=== PATIENT | female | born 1980 | race Caucasian/White ===

== ENCOUNTER 2017-12-22 12:19 | Emergency (ER) | payer SELFPAY ==
[2017-12-22] MEDS ORDERED: DIPH/PERTUSS(ACELL)/TETANUS VAC/PF 0.5 ML SYR (>=10YO) IM ONE (13:00)
[2017-12-22] MEDS ORDERED: LIDOCAINE 1% INJ-PF (10 MG/ML) 30 ML SDV INJ ONE (13:01)
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
== END 2017-12-22 14:47 | disposition home or self-care (01) ==
LOC: ER 12:19
DX: S01.01XA Laceration without foreign body of scalp, initial encounter (principal); W27.8XXA Contact with other nonpowered hand tool, initial encounter; Y93.89 Activity, other specified; F10.120 Alcohol abuse with intoxication, uncomplicated; F17.200 Nicotine dependence, unspecified, uncomplicated; Z88.0 Allergy status to penicillin; Z88.1 Allergy status to other antibiotic agents; Z88.8 Allergy status to other drugs, medicaments and biological substances
CPT/HCPCS: 90471; 90715; 99283

== ENCOUNTER 2019-01-03 17:37 | Emergency (ER) | payer SELFPAY ==
[2019-01-03] MEDS ORDERED: LORAZEPAM INJ 2 MG/1 ML VIAL IV ONE (19:51)
--- NOTE | 2019-01-03 20:03 | ER Document Report ---
ED Dizziness/Weakness - General Chief Complaint: Dizziness Stated Complaint: SICK Time Seen by Provider: 01/03/19 18:51 Primary Care Provider: [facility] [Provider Group] - Follow up tomorrow STARR CARVAJAL MD [ACTIVE STAFF] - Follow up as needed Mode of Arrival: Ambulatory Information source: Patient Notes: Patient presents complaining of dizziness for the past 7 days in which she feels like she is off balance. Patient states that she got bit by a take to the abdomen 6 weeks ago and she is concerned she may have Lyme's disease and would like to be tested. Patient does complain of some nausea. Patient also reports insomnia for the past 5 days that she has been attempting to manage by taking crack cocaine, marijuana as well as methamphetamine for the past 3 days. Patient denies any headache pain. Patient denies any fever. TRAVEL OUTSIDE OF THE [place] IN LAST 30 DAYS: No - HPI Patient complains to provider of: Dizziness, Other - Insomnia Onset: Other - 5 days Onset/Duration: Persistent Quality of pain: No pain Pain Level: Denies Associated symptoms: Dizzy, Nausea. denies: Chest pain, Confused, Ear pain, Fainted, Headache, Lightheaded, Short of breath, Vomiting Baseline gait: Walks w/o assistance - Related Data Allergies/Adverse Reactions: ampicillin [Ampicillin] Allergy (Verified 01/03/19 17:53) doxycycline [Doxycycline] Allergy (Verified 01/03/19 17:53) promethazine [From Phenergan] Allergy (Verified 01/03/19 17:53) promethazine HCl [From Phenergan] Allergy (Verified 01/03/19 17:53) Past Medical History - General Information source: Patient - Social History Smoking Status: Current Every Day Smoker Frequency of alcohol use: Occasional Drug Abuse: Cocaine, Marijuana, Methamphetamine Occupation: Foodservice Family History: None, Reviewed & Not Pertinent Patient has suicidal ideation: No Patient has homicidal ideation: No Renal/ Medical History: Denies: Hx Peritoneal Dialysis Skin Medical History: Denies Hx MRSA, Reports Hx Psoriasis Past Surgical History: Reports: Hx Section, Hx Orthopedic Surgery Review of Systems - Review of Systems Constitutional: No symptoms reported. denies: Chills, Fever, Recent illness EENT: No symptoms reported. denies: Nose congestion, Nose discharge Cardiovascular: Dizziness. denies: Chest pain, Palpitations, Syncope Respiratory: No symptoms reported. denies: Cough, Short of breath Gastrointestinal: Nausea. denies: Abdominal pain, Diarrhea, Vomiting Genitourinary: No symptoms reported Female Genitourinary: No symptoms reported. denies: Musculoskeletal: No symptoms reported. denies: Back pain, Joint pain, Muscle pain, Neck pain Skin: Other - Insect bite to abdomen from take. denies: Rash Hematologic/Lymphatic: No symptoms reported Neurological/Psychological: No symptoms reported. denies: Weakness, Headaches Physical Exam - Vital signs Vitals: Temp Pulse Resp BP Pulse Ox 97.7 F 68 16 123/71 100 01/03/19 18:24 01/03/19 18:24 01/03/19 18:24 01/03/19 18:24 01/03/19 18:24 - General General appearance: Alert, Anxious In distress: None Notes: Restless in room, patient continually moving about - HEENT Head: Normocephalic, Atraumatic Eyes: Normal Eyelashes: Normal Pupils: PERRL Nasal: Normal Mouth/Lips: Other - Patient continually licking lips and rolling lips Mucous membranes: Dry Pharynx: Normal Neck: Normal, Supple. No: Lymphadenopathy - Respiratory Respiratory status: No respiratory distress Chest status: Nontender Breath sounds: Normal. No: Rales, Rhonchi, Stridor, Wheezing Chest palpation: Normal - Cardiovascular Rhythm: Regular. No: Tachycardia Heart sounds: S1 appreciated, S2 appreciated - Back Back: Normal, Nontender - Extremities General upper extremity: Normal inspection, Normal strength General lower extremity: Normal inspection, Normal strength - Neurological Neuro grossly intact: Yes Cognition: Normal Trang Coma Scale Eye Opening: Spontaneous Joshua Coma Scale Verbal: Oriented Trang Coma Scale Motor: Obeys Commands Trang Coma Scale Total: 15 - Psychological Associated symptoms: Restlessness - Skin Skin Temperature: Warm Skin Moisture: Dry Skin Color: Normal Skin irregularity: other - Patient with scattered excoriated lesions to trunk and extremities Course - Re-evaluation Re-evalutation: 01/03/19 21:13 Patient is continually restless walking in and out of the emergency department to her vehicle. Patient is continually requesting prescription for Valium to manage her symptoms. When provider pulled patient aside to discuss concern about substance abuse not in the presence of her children, patient became irate insisting that her insomnia was not at all related to taking methamphetamine or crack cocaine. Patient states that her insomnia causes her to get dizzy and makes her want to take medicine to treat her symptoms. Patient states that she does not get medicine to help her sleep and she is going to take something [id number] to help her sleep. Patient's ex- is at bedside who has full custody of the children states that he does not have concerns about patient's safety at this time. Patient denies any suicidal or homicidal ideation. Patient is continually requesting a prescription for Valium to help with sleep. Patient was offered the opportunity to stay and speak with mental health staff regarding her insomnia as well as substance abuse. Patient declined staying for any mental health evaluation. Consulted with Dr. Romulo Hilario regarding patient presentation. Agrees with discharge plan of care at this time. 01/04/19 02:01 - Vital Signs Vital signs: Temp Pulse Resp BP Pulse Ox 97.9 F 96 16 107/69 100 01/03/19 21:39 01/03/19 21:39 01/03/19 21:39 01/03/19 21:39 01/03/19 21:39 - Laboratory Result Diagrams: 01/03/19 20:05 01/03/19 20:05 Laboratory results interpreted by me: 01/03/19 01/03/19 20:05 20:05 RDW 14.4 H Eosinophils % 6.4 H Creatine Kinase 222 H Labs- Entire Visit 01/03/19 01/03/19 01/03/19 20:05 20:05 20:05 WBC 8.3 RBC 4.49 Hgb 12.7 Hct 38.0 MCV 85 MCH 28.4 MCHC 33.5 RDW 14.4 H Plt Count 328 Seg Neutrophils % 43.1 Lymphocytes % 37.7 Monocytes % 11.6 Eosinophils % 6.4 H Basophils % 1.2 Absolute Neutrophils 3.6 Absolute Lymphocytes 3.1 Absolute Monocytes 1.0 Absolute Eosinophils 0.5 Absolute Basophils 0.1 Sodium 140.2 Potassium 3.9 Chloride 107 Carbon Dioxide 27 Anion Gap 6 BUN 14 Creatinine 0.90 Est GFR ( Amer) > 60 Est GFR (Non-Af Amer) > 60 Glucose 77 Calcium 10.0 Total Bilirubin 0.6 Direct Bilirubin 0.2 Neonat Total Bilirubin Not Reportable Neonat Direct Bilirubin Not Reportable Neonat Indirect Bili Not Reportable AST 24 ALT 16 Alkaline Phosphatase 58 Creatine Kinase 222 H Total Protein 7.4 Albumin 4.5 Serum HCG, Qual NEGATIVE Discharge - Discharge Clinical Impression: Methamphetamine abuse, Cocaine abuse, concern about lyme disease Tick bite Qualifiers: Encounter type: initial encounter Qualified Code(s): W57.XXXA - Bitten or stung by nonvenomous insect and other nonvenomous arthropods, initial encounter Condition: Stable Disposition: HOME, SELF-CARE Instructions: Antibiotic Therapy ([facility]), Tick Bites ([facility]) Additional Instructions: Return immediately for any new or worsening symptoms Followup with your primary care provider, call tomorrow to make a followup appointment Avoid use of methamphetamine cocaine marijuana Lyme's test is pending at this time. Prescriptions: Cefuroxime Axetil [Ceftin 500 mg Tablet] 1 tab PO BID #28 tablet Referrals: STARR CARVAJAL MD [ACTIVE STAFF] - Follow up as needed [facility] [Provider Group] - Follow up tomorrow
[2019-01-03] MEDS ORDERED: DIAZEPAM 5 MG TABLET PO ONE (20:05)
[2019-01-03 20:22] LABS: ABSOLUTE BASOPHILS # (AUTO) 0.1 10^3/uL (0.0-0.2); ABSOLUTE EOSINOPHILS # (AUTO) 0.5 10^3/uL (0.0-0.6); ABSOLUTE LYMPHOCYTES (AUTO) 3.1 10^3/uL (0.5-4.7); ABSOLUTE NEUT (AUTO) 3.6 10^3/uL (1.7-8.2); BASOPHILS % (AUTO) 1.2 % (0-2); EOSINOPHILS % (AUTO) 6.4 % (0-6); HEMOGLOBIN 12.7 g/dL (12.0-15.5); LYMPHOCYTES % (AUTO) 37.7 % (13-45); MEAN CORPUSCULAR HEMOGLOBIN 28.4 pg (27.0-33.4); MEAN CORPUSCULAR HGB CONC 33.5 g/dL (32.0-36.0); MEAN CORPUSCULAR VOLUME 85 fl (80-97); MONOCYTES % (AUTO) 11.6 % (3-13); PLATELET COUNT 328 10^3/uL (150-450); RED BLOOD COUNT 4.49 10^6/uL (3.72-5.28); RED CELL DISTRIBUTION WIDTH 14.4 % (11.5-14.0); SEGMENTED NEUTROPHILS % (AUTO) 43.1 % (42-78); TOTAL CELLS COUNTED % (AUTO) 100 %; WHITE BLOOD COUNT 8.3 10^3/uL (4.0-10.5)
[2019-01-03 20:40] LABS: ALANINE AMINOTRANSFERASE 16 U/L (9-52); ALBUMIN 4.5 g/dL (3.5-5.0); ALKALINE PHOSPHATASE 58 U/L (38-126); ANION GAP 6 (5-19); ASPARTATE AMINO TRANSFERASE 24 U/L (14-36); BILIRUBIN,DIRECT 0.2 mg/dL (0.0-0.4); BILIRUBIN,TOTAL 0.6 mg/dL (0.2-1.3); BLOOD UREA NITROGEN 14 mg/dL (7-20); CARBON DIOXIDE 27 mmol/L (22-30); CHLORIDE 107 mmol/L (98-107); CREATINE KINASE 222 U/L (30-135); GLUCOSE 77 mg/dL (75-110); POTASSIUM 3.9 mmol/L (3.6-5.0); SODIUM 140.2 mmol/L (137-145); TOTAL PROTEIN 7.4 g/dL (6.3-8.2)
[2019-01-03 21:44] VITALS: BP 107/69
--- NOTE | 2019-01-04 08:17 | EKG REPORT ---
SEVERITY:- ABNORMAL ECG - SINUS RHYTHM PROBABLE LEFT VENTRICULAR HYPERTROPHY : Confirmed by: Goran Foster MD 04-Jan-2019 08:17:04
[2019-01-05 15:48] LABS: LYME DISEASE IGM AB <0.80 index (0.00-0.79)
== END 2019-01-03 21:45 | disposition home or self-care (01) ==
LOC: ER 17:37
DX: F14.10 Cocaine abuse, uncomplicated (principal); F15.10 Other stimulant abuse, uncomplicated; S30.861A Insect bite (nonvenomous) of abdominal wall, initial encounter; W57.XXXA Bitten or stung by nonvenomous insect and other nonvenomous arthropods, initial encounter; R42 Dizziness and giddiness; R11.0 Nausea; F12.10 Cannabis abuse, uncomplicated; F17.200 Nicotine dependence, unspecified, uncomplicated; G47.00 Insomnia, unspecified; L98.9 Disorder of the skin and subcutaneous tissue, unspecified; Z88.0 Allergy status to penicillin; Z88.1 Allergy status to other antibiotic agents; Z88.8 Allergy status to other drugs, medicaments and biological substances
CPT/HCPCS: 36415; 80053; 82550; 84703; 85025; 86617; 86618; 93005; 93010; 99284

== ENCOUNTER 2019-03-09 12:35 | Emergency (ER) | payer SELFPAY ==
[2019-03-09 12:44] VITALS: BP 115/67
[2019-03-09] MEDS ORDERED: PHENAZOPYRIDINE HCL 200 MG TABLET PO ONE (13:00)
--- NOTE | 2019-03-09 13:04 | ER Document Report ---
ED Medical Screen (RME) - General Chief Complaint: Urinary Problem Stated Complaint: URINARY PROBLEM Time Seen by Provider: 03/09/19 13:00 Mode of Arrival: Ambulatory Information source: Patient Notes: Patient presents complaining of urinary frequency for the past week. Patient reports urgency and dysuria. No fever. Patient does report recent treatment for gonorrhea 3 weeks ago. Patient is also tachycardic in triage. Patient states that she noticed that her heart is been racing recently. She denies any chest pain or difficulty breathing. I have greeted and performed a rapid initial assessment of this patient. A comprehensive ED assessment and evaluation of the patient, analysis of test results and completion of the medical decision making process will be conducted by additional ED providers. TRAVEL OUTSIDE OF THE [place] IN LAST 30 DAYS: No - Related Data Allergies/Adverse Reactions: ampicillin [Ampicillin] Allergy (Verified 03/09/19 12:48) doxycycline [Doxycycline] Allergy (Verified 03/09/19 12:48) promethazine [From Phenergan] Allergy (Verified 03/09/19 12:48) promethazine HCl [From Phenergan] Allergy (Verified 03/09/19 12:48) Past Medical History Renal/ Medical History: Denies: Hx Peritoneal Dialysis Skin Medical History: Denies Hx MRSA, Reports Hx Psoriasis Past Surgical History: Reports: Hx Section, Hx Orthopedic Surgery Physical Exam - Vital signs Vitals: Temp Pulse Resp BP Pulse Ox 98.2 F 137 H 16 115/67 100 03/09/19 12:39 03/09/19 12:39 03/09/19 12:39 03/09/19 12:39 03/09/19 12:39 - General General appearance: Appears well, Alert - Cardiovascular Rhythm: Tachycardia Heart sounds: S1 appreciated, S2 appreciated - Back Back: No: CVA tenderness Course - Vital Signs Vital signs: Temp Pulse Resp BP Pulse Ox 98.2 F 137 H 16 115/67 100 03/09/19 12:39 03/09/19 12:39 03/09/19 12:39 03/09/19 12:39 03/09/19 12:39
[2019-03-09] MEDS ORDERED: NORMAL SALINE 1000 ML 1,000 ML IV ONE (13:05)
[2019-03-09 13:47] LABS: ABSOLUTE BASOPHILS # (AUTO) 0.1 10^3/uL (0.0-0.2); ABSOLUTE EOSINOPHILS # (AUTO) 0.3 10^3/uL (0.0-0.6); ABSOLUTE LYMPHOCYTES (AUTO) 2.4 10^3/uL (0.5-4.7); ABSOLUTE MONOCYTES (AUTO) 0.6 10^3/uL (0.1-1.4); ABSOLUTE NEUT (AUTO) 3.8 10^3/uL (1.7-8.2); BACTERIA (WET MOUNT) 3+ BACTERIA SEEN; BASOPHILS % (AUTO) 1.3 % (0-2); EOSINOPHILS % (AUTO) 4.8 % (0-6); EPITHELIALS (WET MOUNT) 3+ EPITHELIALS SEEN; HEMOGLOBIN 12.6 g/dL (12.0-15.5); LYMPHOCYTES % (AUTO) 33.2 % (13-45); MEAN CORPUSCULAR HEMOGLOBIN 29.1 pg (27.0-33.4); MEAN CORPUSCULAR HGB CONC 33.1 g/dL (32.0-36.0); MEAN CORPUSCULAR VOLUME 88 fl (80-97); MONOCYTES % (AUTO) 8.1 % (3-13); PLATELET COUNT 333 10^3/uL (150-450); RBCS (WET MOUNT) RARE RBCS SEEN; RED BLOOD COUNT 4.32 10^6/uL (3.72-5.28); RED CELL DISTRIBUTION WIDTH 15.8 % (11.5-14.0); SEGMENTED NEUTROPHILS % (AUTO) 52.6 % (42-78); T.VAGINALIS (WET MOUNT) NO TRICHOMONAS SEEN; TOTAL CELLS COUNTED % (AUTO) 100 %; WBCS (WET MOUNT) 2+ WBCS SEEN; WHITE BLOOD COUNT 7.2 10^3/uL (4.0-10.5); YEAST (WET MOUNT) NO YEAST SEEN
[2019-03-09 13:52] LABS: APPEARANCE,URINE SLIGHTLY-CLOUDY; BILIRUBIN,URINE NEGATIVE (NEGATIVE); COLOR,URINE YELLOW; GLUCOSE, URINE NEGATIVE (NEGATIVE); KETONES,URINE NEGATIVE (NEGATIVE); LEUKOCYTE ESTERASE,URINE NEGATIVE (NEGATIVE); NITRITE,URINE NEGATIVE (NEGATIVE); PROTEIN,URINE NEGATIVE (NEGATIVE); URINE SPECIFIC GRAVITY 1.013; UROBILINOGEN,URINE NEGATIVE mg/dL (<2.0)
[2019-03-09 14:04] LABS: ANION GAP 9 (5-19); BLOOD UREA NITROGEN 11 mg/dL (7-20); CALCIUM 10.2 mg/dL (8.4-10.2); CARBON DIOXIDE 27 mmol/L (22-30); CHLORIDE 104 mmol/L (98-107); GLUCOSE 95 mg/dL (75-110); POTASSIUM 5.2 mmol/L (3.6-5.0)
[2019-03-09 15:20] LABS: CHLAM PCR NOT DETECTED (NOT DETECT)
--- NOTE | 2019-03-09 21:39 | ER Document Report ---
Entered by LEOBARDO JACKSON SCRIBE 03/09/19 1508 Acting as scribe for:THO VALLE DO ED GI/ - General Chief Complaint: Urinary Problem Stated Complaint: URINARY PROBLEM Time Seen by Provider: 03/09/19 13:00 Primary Care Provider: [facility] [Provider Group] - Follow up as needed Mode of Arrival: Ambulatory Information source: Patient Notes: 39-year-old female who presents to the emergency department today with c omplaints of pelvic pain with associated urinary frequency and retention for the last week. Patient states that she was treated for gonorrhea approximately x3 weeks ago and she feels that "it was never fully treated". Patient states her symptoms today are consistent with the symptoms she had when she was diagnosed with gonorrhea. TRAVEL OUTSIDE OF THE [place] IN LAST 30 DAYS: No - Related Data Allergies/Adverse Reactions: ampicillin [Ampicillin] Allergy (Verified 03/09/19 12:48) doxycycline [Doxycycline] Allergy (Verified 03/09/19 12:48) promethazine [From Phenergan] Allergy (Verified 03/09/19 12:48) promethazine HCl [From Phenergan] Allergy (Verified 03/09/19 12:48) Past Medical History - General Information source: Patient - Social History Smoking Status: Current Some Day Smoker Cigarette use (# per day): Yes Chew tobacco use (# tins/day): No Frequency of alcohol use: None Drug Abuse: None Lives with: Family Family History: None, Reviewed & Not Pertinent Patient has suicidal ideation: No Patient has homicidal ideation: No Skin Medical History: Reports Hx Psoriasis Past Surgical History: Reports: Hx Section, Hx Orthopedic Surgery Review of Systems - Review of Systems Constitutional: No symptoms reported EENT: No symptoms reported Cardiovascular: No symptoms reported Respiratory: No symptoms reported Gastrointestinal: No symptoms reported Genitourinary: See HPI, Frequency, Pain, Retention Female Genitourinary: No symptoms reported Musculoskeletal: No symptoms reported Skin: No symptoms reported Hematologic/Lymphatic: No symptoms reported Neurological/Psychological: No symptoms reported -: Yes All other systems reviewed and negative Physical Exam - Vital signs Vitals: Temp Pulse Resp BP Pulse Ox 98.2 F 137 H 16 115/67 100 03/09/19 12:39 03/09/19 12:39 03/09/19 12:39 03/09/19 12:39 03/09/19 12:39 Interpretation: Normal - General General appearance: Appears well, Alert - HEENT Head: Normocephalic, Atraumatic Eyes: Normal Pupils: PERRL - Respiratory Respiratory status: No respiratory distress Chest status: Nontender Breath sounds: Normal Chest palpation: Normal - Cardiovascular Rhythm: Regular - No further tachycardia on exam Heart sounds: Normal auscultation Murmur: No - Abdominal Inspection: Normal Distension: No distension Bowel sounds: Normal Tenderness: Nontender Organomegaly: No organomegaly - Back Back: Normal, Nontender - Extremities General upper extremity: Normal inspection, Nontender, Normal color, Normal ROM, Normal temperature General lower extremity: Normal inspection, Nontender, Normal color, Normal ROM, Normal temperature, Normal weight bearing. No: Edwin's sign - Neurological Neuro grossly intact: Yes Cognition: Normal Orientation: AAOx4 Trang Coma Scale Eye Opening: Spontaneous Trang Coma Scale Verbal: Oriented [place] Coma Scale Motor: Obeys Commands [place] Coma Scale Total: 15 Speech: Normal Motor strength normal: LUE, RUE, LLE, RLE Sensory: Normal - Psychological Associated symptoms: Normal affect, Normal mood - Skin Skin Temperature: Warm Skin Moisture: Dry Skin Color: Normal Course - Re-evaluation Re-evalutation: 03/09/19 21:36 Patient is a 39-year-old female who comes in complaining of possible urinary symptoms. Blood work and urine are benign. Patient states that she was treated for gonorrhea recently and feels that she may have similar symptoms. Will give patient doxycycline. She is asking to be discharged. She does not want another pelvic exam. Stable for discharge. Return for further concerns. Of note, allergies reviewed and patient is not truly allergic to doxycycline. She has nausea with it. - Vital Signs Vital signs: Temp Pulse Resp BP Pulse Ox 98.2 F 137 H 16 115/67 100 03/09/19 12:39 03/09/19 12:39 03/09/19 12:39 03/09/19 12:39 03/09/19 12:39 - Laboratory Result Diagrams: 03/09/19 13:25 03/09/19 13:25 Laboratory results interpreted by me: 03/09/19 03/09/19 13:25 13:25 RDW 15.8 H Potassium 5.2 H Discharge - Discharge Clinical Impression: Dysuria Condition: Stable Disposition: HOME, SELF-CARE Instructions: Cervicitis ([facility]), Pelvic Pain ([facility]) Prescriptions: Doxycycline Hyclate 100 mg PO BID #28 capsule Metoclopramide HCl [Reglan 10 mg Tablet] 1 - 2 tab PO ASDIR PRN #25 tablet PRN Reason: Referrals: [facility] [Provider Group] - Follow up as needed Scribe Attestation: 03/09/19 21:37 I personally performed the services described in the documentation, reviewed and edited the documentation which was dictated to the scribe in my presence, and it accurately records my words and actions. I personally performed the services described in the documentation, reviewed and edited the documentation which was dictated to the scribe in my presence, and it accurately records my words and actions.
--- NOTE | 2019-03-10 10:29 | EKG REPORT ---
SEVERITY:- NORMAL ECG - SINUS RHYTHM : Confirmed by: Catherine Mariscal 10-Mar-2019 10:28:58
== END 2019-03-09 15:30 | disposition home or self-care (01) ==
LOC: ER 12:35
DX: R30.0 Dysuria (principal); R10.2 Pelvic and perineal pain; F17.210 Nicotine dependence, cigarettes, uncomplicated; Z88.0 Allergy status to penicillin
CPT/HCPCS: 93005; 99284; 36415; 87086; 87210; 83735; 84443; 85025; 81025; 80048; 81001; 87491; 87591; 93010; J3490

== ENCOUNTER 2019-04-27 17:21 | Emergency (ER) | payer SELFPAY ==
[2019-04-27 17:38] VITALS: BP 122/84
--- NOTE | 2019-04-27 17:50 | ER Document Report ---
ED Medical Screen (RME) - General Stated Complaint: TOOTH/GUM PAIN, SORES Time Seen by Provider: 04/27/19 17:43 Primary Care Provider: [facility] [Provider Group] - Follow up as needed Mode of Arrival: Ambulatory Information source: Patient Notes: 39-year-old female presented to ED for dental pain to the left lower jaw. She has very few teeth in the lower jaw. This is at the area of the tooth #22 and 23. There is mild redness and swelling to the area. There is cavity to her face. There is no definite abscess is noted. Patient states she just wanted some antibiotics and some of her discomfort and be discharged home. Patient was treated with penicillin V, viscous lidocaine, and Toradol injection. Patient was discharged home with prescription of penicillin VK. TRAVEL OUTSIDE OF THE [place] IN LAST 30 DAYS: No - HPI Onset: Other - Patient states for 5 days Onset/Duration: Gradual Quality of pain: Sharp, Throbbing Severity: Severe Pain Level: 5 Associated Symptoms: Other - Dental pain Exacerbated by: Denies Relieved by: Denies Similar symptoms previously: Yes Recently seen / treated by doctor: No - Related Data Smoking: Cigarettes Allergies/Adverse Reactions: doxycycline [Doxycycline] Allergy (Verified 03/09/19 12:48) promethazine [From Phenergan] Allergy (Verified 03/09/19 12:48) promethazine HCl [From Phenergan] Allergy (Verified 03/09/19 12:48) Past Medical History - General Information source: Patient - Social History Cigarette use (# per day): Yes Chew tobacco use (# tins/day): No Frequency of alcohol use: None Drug Abuse: None Occupation: none Lives with: Spouse/Significant other - Past Medical History Cardiac Medical History: Reports: None Pulmonary Medical History: Reports: None EENT Medical History: Reports: None Neurological Medical History: Reports: None Endocrine Medical History: Reports: None Renal/ Medical History: Reports: None Malignancy Medical History: Reports: None GI Medical History: Reports: None Musculoskeltal Medical History: Reports None Skin Medical History: Reports Hx Psoriasis Psychiatric Medical History: Reports: None Traumatic Medical History: Reports: None Infectious Medical History: Reports: None Past Surgical History: Reports: Hx Section, Hx Oral Surgery - wisdom teeth Review of Systems - Review of Systems Constitutional: No symptoms reported EENT: No symptoms reported, Mouth pain, Dental problem Cardiovascular: No symptoms reported Respiratory: No symptoms reported Gastrointestinal: No symptoms reported Genitourinary: No symptoms reported Female Genitourinary: No symptoms reported Musculoskeletal: No symptoms reported Skin: No symptoms reported Hematologic/Lymphatic: No symptoms reported Neurological/Psychological: No symptoms reported -: Yes All other systems reviewed and negative Physical Exam - Vital signs Vitals: Temp Pulse Resp BP Pulse Ox 98.7 F 74 18 122/84 97 04/27/19 17:37 04/27/19 17:37 04/27/19 17:37 04/27/19 17:37 04/27/19 17:37 Interpretation: Normal - General General appearance: Appears well, Alert - HEENT Head: Normocephalic, Atraumatic Eyes: Normal Pupils: PERRL Ears: Normal External canal: Normal Tympanic membrane: Normal Sinus: Normal Nasal: Normal Mouth/Lips: Caries Mucous membranes: Normal Teeth diagram: 1 - Pain and swelling redness around gums - Respiratory Respiratory status: No respiratory distress Chest status: Nontender Breath sounds: Normal Chest palpation: Normal - Cardiovascular Rhythm: Regular Heart sounds: Normal auscultation Murmur: No - Abdominal Inspection: Normal Distension: No distension Bowel sounds: Normal Tenderness: Nontender Organomegaly: No organomegaly - Back Back: Normal, Nontender - Extremities General upper extremity: Normal inspection, Nontender, Normal color, Normal ROM, Normal temperature General lower extremity: Normal inspection, Nontender, Normal color, Normal ROM, Normal temperature, Normal weight bearing. No: Edwin's sign - Neurological Neuro grossly intact: Yes Cognition: Normal Orientation: AAOx4 Trang Coma Scale Eye Opening: Spontaneous [place] Coma Scale Verbal: Oriented Trang Coma Scale Motor: Obeys Commands Trang Coma Scale Total: 15 Speech: Normal Motor strength normal: LUE, RUE, LLE, RLE Sensory: Normal - Psychological Associated symptoms: Normal affect, Normal mood - Skin Skin Temperature: Warm Skin Moisture: Dry Skin Color: Normal Course - Re-evaluation Re-evalutation: 04/27/19 22:53 Presentation is most consistent with likely an infected tooth. Airway is patent. Vitals within normal limits. Patient is able swallow without any dif ficulty. There is no significant facial swelling. No evidence of Sonny angina, apical abscess, or airway obstruction. Patient will be started on antibiotics. I've instructed to follow-up with dentistry as earliest ability for definitive management. At this time will discharge with return precautions and follow-up recommendations. Verbal discharge instructions given a the bedside and opportunity for questions given. Medication warnings reviewed. Patient is in agreement with this plan and has verbalized understanding of return precautions and the need for primary care follow-up in the next 24-72 hours. - Vital Signs Vital signs: Temp Pulse Resp BP Pulse Ox 98.7 F 74 18 122/84 97 04/27/19 17:37 04/27/19 17:37 04/27/19 17:37 04/27/19 17:37 04/27/19 17:37 Doctor's Discharge - Discharge Clinical Impression: Pain due to dental caries Condition: Stable Disposition: HOME, SELF-CARE Additional Instructions: TOOTHACHE: Your pain is due to dental decay. The tooth must be repaired in order for you to feel better. You will, therefore, be referred to a dentist. We do not have dentists on the staff at [facility]. Severe swelling or drainage around a tooth usually means a dental abscess. This also requires evaluation and treatment by the dentist, but antibiotics may be prescribed while awaiting dental treatment. You should be rechecked immediately if you develop major swelling of the face, increasing pain, a lump in the jaw or gums, headache, difficulty swallowing, or fever. PENICILLIN V K: You have been given a prescription for Penicillin VK. Your physician has determined that this is the best antibiotic for your condition. Pen VK can be taken with meals, however more of the antibiotic gets into the bloodstream if it's taken on an empty stomach. Penicillin usually has no side effects. However, allergy to penicillins is common. If you have had an allergic reaction to any drug of the penicillin family, you should never take any other penicillin. Notify your doctor at once if you develop hives, itching, swelling, faintness, or shortness of breath. Toradol Injection You have been given an injection of ketorolac tromethamine (Toradol). This is an excellent, safe drug for pain control. It also has potent antiinflammatory action. You should have significant pain relief within about one hour. Toradol is not addicting and is non-sedating. It does not interfere with driving or work. Call or return if you develop itching, hives, shortness of breath, or rash. FOLLOW-UP CARE: You have been referred for follow-up care to the dentists listed below. Call the dentists office for an appointment as you were instructed or within the next two days. If you experience worsening or a significant change in your symptoms, notify the physician immediately or return to the Emergency Department at any time for re-evaluation. [facility] [address] [place] [address] [facility] [place] [address] [facility] [address] [facility] [address] [email or web address] [address] [place] [address] Tuesday- 8:00am to 5:00 pm Will see patients from other [facility]. Charges based on income and family size and accepts Medicare, Medicaid, and Insurances Will pull molars [facility] [address] Hours of Operation 8:00 am - 4:30 pm weekdays The following dental offices accept Medicaid: [facility] Dr. Reich Dr. Mackey Dr. Bello Dr. Benitez Calvin Rosas [place], and [facility] oral surgery Dr. Leblanc ([place]) Dr. Crow ([place]) [facility] Drs. Shira ([place]) Dr. Avendano ([place]) [facility] Dr. Juarez ([place]) Drs. Yu and ([place]) Medicaid Care Line Prescriptions: Penicillin V Potassium [Penicillin Vk 500 mg Tablet] 500 mg PO BID #20 tablet Referrals: [facility] [Provider Group] - Follow up as needed
[2019-04-27] MEDS ORDERED: PENICILLIN V POTASSIUM 500 MG TABLET PO ONE (17:53)
[2019-04-27] MEDS ORDERED: KETOROLAC TROMETHAMINE 60 MG/2 ML SDV IM ONE (17:54)
[2019-04-27] MEDS ORDERED: LIDOCAINE 2% VISCOUS SOLN 20 ML UDCUP PO ONE (17:54)
== END 2019-04-27 18:12 | disposition home or self-care (01) ==
LOC: ER 17:21
DX: K02.9 Dental caries, unspecified (principal); K08.89 Other specified disorders of teeth and supporting structures; R68.84 Jaw pain; R22.0 Localized swelling, mass and lump, head; F17.210 Nicotine dependence, cigarettes, uncomplicated
CPT/HCPCS: 99282; 96372; J1885; J3490

== ENCOUNTER 2019-06-12 21:57 | Emergency (ER) | payer SELFPAY ==
[2019-06-12] MEDS ORDERED: ACETAMINOPHEN 325 MG TABLET PO ONE (22:30)
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
[2019-06-13 03:10] VITALS: BP 135/62
== END 2019-06-13 03:16 ==
LOC: ER 21:57
DX: S02.40DA Maxillary fracture, left side, initial encounter for closed fracture (principal); S02.32XA Fracture of orbital floor, left side, initial encounter for closed fracture; S60.221A Contusion of right hand, initial encounter; Y09 Assault by unspecified means; F17.200 Nicotine dependence, unspecified, uncomplicated; Z79.899 Other long term (current) drug therapy; Z88.1 Allergy status to other antibiotic agents; Z88.8 Allergy status to other drugs, medicaments and biological substances
CPT/HCPCS: 70486; 72125; 99285

== ENCOUNTER 2019-09-15 21:20 | Emergency (ER) | payer SELFPAY ==
[2019-09-15 21:38] VITALS: BP 111/70
--- NOTE | 2019-09-15 22:18 | ER Document Report ---
ED Medical Screen (RME) - General Chief Complaint: Suicidal Ideation Stated Complaint: SUICIDAL IDEATION/PSYCH Time Seen by Provider: 09/15/19 22:05 TRAVEL OUTSIDE OF THE [place]. IN LAST 30 DAYS: No - HPI Notes: 09/15/19 22:14 39-year-old female to the emergency department with complaints of suicidal ideation that is been ongoing for the past 4 months but particularly worse in the past several weeks. She states that she has been having difficulty in her personal relationship with her boyfriend and been drinking more than she normally does. She also admits to smoking crack recently. She states that she does not have a definitive plan but then states that she thinks about overdosing on Zoloft. She is never attempted before. She states that she has a standing diagnosis of anxiety, depression, borderline personality disorder. She states that she is not currently on any psychotropic medicines. She has been to [facility] before. I performed a brief medical screening exam on the patient determined that the patient needs further evaluation and management by main side provider. I have placed initial orders to help expedite care. - Related Data Allergies/Adverse Reactions: doxycycline [Doxycycline] Allergy (Verified 06/12/19 22:21) promethazine [From Phenergan] Allergy (Verified 06/12/19 22:21) promethazine HCl [From Phenergan] Allergy (Verified 06/12/19 22:21) Past Medical History - Social History Chew tobacco use (# tins/day): No Frequency of alcohol use: Heavy Drug Abuse: Cocaine, Marijuana Renal/ Medical History: Denies: Hx Peritoneal Dialysis Skin Medical History: Denies Hx MRSA, Reports Hx Psoriasis Psychiatric Medical History: Reports: Hx Depression Past Surgical History: Reports: Hx Section, Hx Oral Surgery - wisdom teeth, Hx Orthopedic Surgery Physical Exam - Vital signs Vitals: Temp Pulse Resp BP Pulse Ox 98.3 F 92 18 111/70 99 09/15/19 21:37 09/15/19 21:37 09/15/19 21:37 09/15/19 21:37 09/15/19 21:37 Course - Vital Signs Vital signs: Temp Pulse Resp BP Pulse Ox 98.3 F 92 18 111/70 99 09/15/19 21:37 09/15/19 21:37 09/15/19 21:37 09/15/19 21:37 09/15/19 21:37
[2019-09-16 01:54] LABS: ABSOLUTE BASOPHILS # (AUTO) 0.1 10^3/uL (0.0-0.2); ABSOLUTE EOSINOPHILS # (AUTO) 0.1 10^3/uL (0.0-0.6); ABSOLUTE LYMPHOCYTES (AUTO) 2.7 10^3/uL (0.5-4.7); ABSOLUTE MONOCYTES (AUTO) 0.8 10^3/uL (0.1-1.4); ABSOLUTE NEUT (AUTO) 2.9 10^3/uL (1.7-8.2); BASOPHILS % (AUTO) 1.2 % (0-2); EOSINOPHILS % (AUTO) 2.1 % (0-6); HEMATOCRIT 36.5 % (36.0-47.0); LYMPHOCYTES % (AUTO) 41.3 % (13-45); MEAN CORPUSCULAR HEMOGLOBIN 25.6 pg (27.0-33.4); MEAN CORPUSCULAR HGB CONC 32.9 g/dL (32.0-36.0); MEAN CORPUSCULAR VOLUME 78 fl (80-97); MONOCYTES % (AUTO) 12.2 % (3-13); PLATELET COUNT 385 10^3/uL (150-450); RED BLOOD COUNT 4.69 10^6/uL (3.72-5.28); RED CELL DISTRIBUTION WIDTH 18.3 % (11.5-14.0); SEGMENTED NEUTROPHILS % (AUTO) 43.2 % (42-78); TOTAL CELLS COUNTED % (AUTO) 100 %; WHITE BLOOD COUNT 6.6 10^3/uL (4.0-10.5)
[2019-09-16 02:01] LABS: ALBUMIN 3.8 g/dL (3.5-5.0); ALKALINE PHOSPHATASE 136 U/L (38-126); ANION GAP 6 (5-19); ASPARTATE AMINO TRANSFERASE 36 U/L (14-36); BILIRUBIN,DIRECT 0.1 mg/dL (0.0-0.4); BILIRUBIN,TOTAL 0.2 mg/dL (0.2-1.3); BLOOD UREA NITROGEN 17 mg/dL (7-20); CALCIUM 9.3 mg/dL (8.4-10.2); CARBON DIOXIDE 28 mmol/L (22-30); CHLORIDE 106 mmol/L (98-107); GLUCOSE 108 mg/dL (75-110); POTASSIUM 4.7 mmol/L (3.6-5.0); TOTAL PROTEIN 6.9 g/dL (6.3-8.2)
[2019-09-16 02:02] LABS: ACETAMINOPHEN < 10 ug/mL (10-30); ALCOHOL < 10 mg/dL (NONE DETECTED); SALICYLATE < 1.0 mg/dL (2.0-20.0)
[2019-09-16 02:04] LABS: APPEARANCE,URINE TURBID; BILIRUBIN,URINE NEGATIVE (NEGATIVE); CALCIUM OXALATE CRYSTALS,URINE FEW /HPF; COLOR,URINE YELLOW; GLUCOSE, URINE NEGATIVE (NEGATIVE); KETONES,URINE NEGATIVE (NEGATIVE); LEUKOCYTE ESTERASE,URINE NEGATIVE (NEGATIVE); NITRITE,URINE NEGATIVE (NEGATIVE); PROTEIN,URINE NEGATIVE (NEGATIVE); URINE SPECIFIC GRAVITY 1.027
[2019-09-16 02:16] LABS: URINE AMPHETAMINES SCREEN NEGATIVE; URINE BARBITURATES SCREEN UNCONFIRMED POSITIVE; URINE BENZODIAZEPINES SCREEN NEGATIVE; URINE COCAINE SCREEN UNCONFIRMED POSITIVE; URINE MARIJUANA (THC) SCREEN UNCONFIRMED POSITIVE; URINE METHADONE SCREEN NEGATIVE; URINE PHENCYCLIDINE SCREEN NEGATIVE
--- NOTE | 2019-09-16 07:01 | ER Document Report ---
Entered by HARMEET CUNNINGHAM SCRIBE 09/16/19 0129 Acting as scribe for:WING RAMOS MD ED Psych Disorder / Suicide - General Chief Complaint: Suicidal Ideation Stated Complaint: SUICIDAL IDEATION/PSYCH Time Seen by Provider: 09/15/19 22:05 Mode of Arrival: Ambulatory Information source: Patient Notes: This 39 year old female patient with a history of anxiety and depression presents to the ED today with complaints of suicidal ideation that has been ongoing for the past 4 months but particularly worse in the past several weeks. Patient states " I have pretty bad anger issues that I don't know how to control and I break stuff and go to longterm". Patient states that she has been having difficulty in her personal relationship with her boyfriend that she lives with and that when he leaves after an argument, she states that "I trash all of his stuff". Patient notes that she is not currently on any psychotropic medicines. Patient states that she thinks of dying a lot, but doesn't want to harm herself or others. Patient does admit to self-mutilation in the past, but states that she wasn't trying to commit suicide at that time. Patient states that she drinks about x4-10+ beers qd and that her last drink was last night. Patient notes that she has been to [facility] before. Patient denies hearing voices or visual hallucinations. TRAVEL OUTSIDE OF THE [place] IN LAST 30 DAYS: No - Related Data Allergies/Adverse Reactions: doxycycline [Doxycycline] Allergy (Verified 06/12/19 22:21) promethazine [From Phenergan] Allergy (Verified 06/12/19 22:21) promethazine HCl [From Phenergan] Allergy (Verified 06/12/19 22:21) Past Medical History - General Information source: Patient - Social History Smoking Status: Current Every Day Smoker Cigarette use (# per day): Yes Chew tobacco use (# tins/day): No Smoking Education Provided: No Frequency of alcohol use: Heavy Drug Abuse: Cocaine, Marijuana Family History: Reviewed & Not Pertinent Patient has suicidal ideation: Yes Patient has homicidal ideation: No Skin Medical History: Reports Hx Psoriasis Psychiatric Medical History: Reports: Hx Anxiety, Hx Borderline Personality Disorder, Hx Depression Past Surgical History: Reports: Hx Section, Hx Oral Surgery - wisdom teeth, Hx Orthopedic Surgery Review of Systems - Review of Systems Constitutional: No symptoms reported EENT: No symptoms reported Cardiovascular: No symptoms reported Respiratory: No symptoms reported Gastrointestinal: No symptoms reported Genitourinary: No symptoms reported Female Genitourinary: No symptoms reported Musculoskeletal: No symptoms reported Skin: No symptoms reported Hematologic/Lymphatic: No symptoms reported Neurological/Psychological: See HPI, Suicidal ideation. denies: Hallucinations, Homicidal ideation, Other - Hearing voices Physical Exam - Vital signs Vitals: Temp Pulse Resp BP Pulse Ox 98.3 F 92 18 111/70 99 09/15/19 21:37 09/15/19 21:37 09/15/19 21:37 09/15/19 21:37 09/15/19 21:37 Interpretation: Normal - General General appearance: Appears well, Other - Sleeping, but easily aroused. In distress: None - HEENT Head: Normocephalic, Atraumatic Eyes: Normal Pupils: PERRL - Respiratory Respiratory status: No respiratory distress Chest status: Nontender Breath sounds: Normal Chest palpation: Normal - Cardiovascular Rhythm: Regular Heart sounds: Normal auscultation Murmur: No - Abdominal Inspection: Normal Distension: No distension Bowel sounds: Normal Tenderness: Nontender Organomegaly: No organomegaly - Back Back: Normal, Nontender - Extremities General upper extremity: Normal inspection General lower extremity: Normal inspection - Neurological Neuro grossly intact: Yes - Psychological Associated symptoms: Normal affect, Normal mood - Skin Skin Temperature: Warm Skin Moisture: Dry Skin Color: Normal Course - Re-evaluation Re-evalutation: 09/16/19 05:36 Patient resting comfortably not showing any signs of distress at this time. 09/16/19 07:00 Patient is medically cleared at this time. - Vital Signs Vital signs: Temp Pulse Resp BP Pulse Ox 98.3 F 92 18 111/70 99 09/15/19 21:37 09/15/19 21:37 09/15/19 21:37 09/15/19 21:37 09/15/19 21:37 - Laboratory Result Diagrams: 09/15/19 23:50 09/15/19 23:50 Laboratory results interpreted by me: 09/15/19 09/15/19 09/15/19 23:30 23:50 23:50 MCV 78 L MCH 25.6 L RDW 18.3 H Alkaline Phosphatase 136 H Urine Urobilinogen 2.0 H Salicylates < 1.0 L Acetaminophen < 10 L Laboratories disclose a polysubstance user with urine positive for cocaine marijuana and barbiturates otherwise labs within normal limits. - EKG Interpretation by Me Additional EKG results interpreted by me: 09/16/19 05:35 Twelve-lead EKG done in 09/16/2019 and oh: 05 normal sinus rhythm rate of 79 probable left atrial abnormality. No acute ST-T wave changes. Discharge - Discharge Clinical Impression: Suicidal ideation Condition: Stable Disposition: PSYCH HOSP/UNIT I personally performed the services described in the documentation, reviewed and edited the documentation which was dictated to the scribe in my presence, and it accurately records my words and actions.
--- NOTE | 2019-09-16 11:26 | ER Document Report ---
Doctor's Note Notes: 09/16/19 11:25 PHYSICAL EXAMINATION: GENERAL: Appears well, healthy, well-nourished, no acute distress. LUNGS: Equal breath sounds bilaterally and clear to auscultation. No wheezes rales or rhonchi. CARDIOVASCULAR: S1-S2, regular rate, regular rhythm. Radial pulses 2+, normal. ABDOMEN: Normoactive bowel sounds. Soft, nontender, no guarding, no rebound tenderness, and no masses palpated. PSYCH: Normal mood, normal affect. Patient denies any suicidal or homicidal ideation. Patient states that she feels her medications are not working for her. Mental health has evaluated her. They are diagnosing her with borderline personality disorder. Patient is able to talk to me.
--- NOTE | 2019-09-16 11:56 | EKG REPORT ---
SEVERITY:- BORDERLINE ECG - SINUS RHYTHM PROBABLE LEFT ATRIAL ABNORMALITY : Confirmed by: Catherine Mariscal 16-Sep-2019 11:55:49
== END 2019-09-16 12:25 | disposition home or self-care (01) ==
LOC: ER 21:20
DX: R45.851 Suicidal ideations (principal); R45.4 Irritability and anger; F41.9 Anxiety disorder, unspecified; F17.210 Nicotine dependence, cigarettes, uncomplicated; Z88.8 Allergy status to other drugs, medicaments and biological substances
CPT/HCPCS: 36415; 80053; 80307; 81001; 85025; 93005; 93010; 99285